=== PATIENT | female | born 1930 | race African-American/Black ===

== ENCOUNTER 2016-11-18 12:12 | Emergency (ER) | payer MEDICARE, MEDICAID ==
[2016-11-18 12:57] LABS: #Basophils 0.1 thou/uL (0.0-0.2); #Eosinphils 0.1 thou/uL (0.0-0.7); #Lymphocytes 1.8 thou/uL (1.20-3.40); #Monocytes 0.4 thou/uL (0.11-0.59); #Neutrophils 5.1 thou/uL (1.40-6.50); %Eosinophils 1.9 % (0.0-10.0); %Lymphocytes 24.1 % (21.0-51.0); %Monocytes 5.2 % (0.0-10.0); %Neutrophils 67.7 % (42.0-75.0); Hemoglobin 10.9 g/dL (12.0-16.0); Mean Corpuscular HGB CONC 31.1 g/dL (32.0-36.0); Mean Corpuscular Hemoglobin 28.8 pg (27.0-31.0); Mean Corpuscular Volume 92.5 fl (81.0-99.0); Mean Platelet Volume 8.2 fL (7.4-10.4); Platelet Count 176 thou/uL (130-400); RBC Distribution Width 15.7 % (11.5-14.5); Red Blood Cell (RBC) Count 3.79 mill/uL (4.20-5.40); White Blood Cell (WBC) Count 7.6 thou/uL (4.8-10.8)
[2016-11-18 13:19] LABS: INR-International Normal Ratio 1.1; Prothrombin Time 14.3 SEC (12.0-14.7)
[2016-11-18 13:20] LABS: PTT 38.6 SEC (22.9-36.1)
== END 2016-11-18 13:45 | disposition home or self-care (01) ==
LOC: NAV ERS 12:12
DX: K64.8 Other hemorrhoids (principal); K59.00 Constipation, unspecified; I10 Essential (primary) hypertension; Z79.899 Other long term (current) drug therapy
CPT/HCPCS: 82274; 85025; 85610; 85730; 99283

== ENCOUNTER 2019-03-09 09:14 | Outpatient (CLI) | payer MEDICARE, MEDICAID ==
--- NOTE | 2019-03-09 11:09 | CT ---
CT ABDOMEN AND PELVIS WITHOUT IV CONTRAST: INDICATIONS: Right abdominal pain. COMPARISON: No comparison studies. TECHNIQUE: Oral contrast was administered. FINDINGS: Motion artifact degrades the exam. The lung bases appear clear. The liver, spleen and pancreas appear unremarkable for an unenhanced study. The dome of the liver is not imaged on this study. The adrenal glands appear normal. There is an exophytic lesion extending from the superior right kidney with densities higher than expe cted for a cyst, making this an indeterminate lesion. It is not adequately evaluated on this unenhanc ed study. It measures up to 2 cm. No hydronephrosis. The kidneys are otherwise unremarkable. Small bowel loops of normal caliber. Appendix is identified and appears unremarkable. Stool throughou t the colon. Diverticulosis of the left colon. No definite evidence of diverticulitis by CT. Aorta of normal caliber. No adenopathy apparent. Images through the pelvis show amorphous calcification involving the uterine fundus, to the left of m idline, consistent with a calcified fibroid. The urinary bladder is mildly distended and unremarkable . Severe degenerative changes in the spine. IMPRESSION: 1. An indeterminate exophytic lesion involving the superior right kidney. Since intravenous contrast cannot be administered in this patient, recommend further evaluation with renal ultrasound examinatio n. MRI may also be considered to further characterize this lesion, which could be performed without c ontrast. 2. Otherwise no acute intra-abdominal process identified. POS: [facility]
== END 2019-03-09 09:15 | disposition home or self-care (01) ==
LOC: NAV CT 09:14
PROVIDERS: ATTEND Nurse Practitioner Adult Health
DX: R10.31 Right lower quadrant pain (principal); Z85.3 Personal history of malignant neoplasm of breast
CPT/HCPCS: 74176

== ENCOUNTER 2019-03-21 10:11 | Outpatient (CLI) | payer MEDICARE, MEDICAID ==
--- NOTE | 2019-03-21 11:39 | ULT ---
BILATERAL RENAL SONOGRAM: Date: 03/21/2019 HISTORY: Renal mass. COMPARISON: Prior exams from [facility] and [facility]. FINDINGS: Right kidney measures up to 9.4 cm length. No hydronephrosis. Along the anterolateral margin of the m id portion of the kidney is an exophytic, well-circumscribed hypoechoic mass without posterior enhanc ement or shadowing. Favored to be a solid lesion rather than cystic. It correlates with the lesion on the recent CT from [facility]. This lesion was not present on the CT images associated with a PET scan from 07/01/2014. The CT chest from [facility] dated 06/29/2014 did not include this part of the ri ght kidney. Left kidney measures up to 8.9 cm. Urinary bladder shows no focal abnormalities. The patient was unab le to void to empty the bladder. IMPRESSION: New solid mass right kidney. 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 Please consider urologic consultation. Findings called to Nayana Aguila at the [facility] at 1125 hours. CODE CR. POS: [facility]
== END 2019-03-21 10:12 | disposition home or self-care (01) ==
LOC: NAV ULT 10:11
PROVIDERS: ATTEND Nurse Practitioner Adult Health
DX: N28.9 Disorder of kidney and ureter, unspecified (principal); N28.89 Other specified disorders of kidney and ureter
CPT/HCPCS: 76770

== ENCOUNTER 2019-10-14 10:09 | Emergency (ER) | payer MEDICARE, MEDICAID ==
[2019-10-14 10:51] LABS: Hemoglobin 11.2 g/dL (12.0-16.0); Mean Corpuscular Hemoglobin 27.9 pg (27.0-31.0); Mean Platelet Volume 7.3 fL (7.4-10.4); Platelet Count 197 thou/uL (130-400); RBC Distribution Width 17.6 % (11.5-14.5); Red Blood Cell (RBC) Count 3.99 mill/uL (4.20-5.40); White Blood Cell (WBC) Count 9.6 thou/uL (4.8-10.8)
[2019-10-14 11:00] LABS: #Eosinphils 0.1 thou/uL (0.0-0.7); #Lymphocytes 2.2 thou/uL (1.20-3.40); #Monocytes 0.6 thou/uL (0.11-0.59); #Neutrophils 6.7 thou/uL (1.40-6.50); %Basophils 0.4 % (0.0-1.0); %Lymphocytes 22.7 % (21.0-51.0); %Monocytes 6.6 % (0.0-10.0); %Neutrophils 69.3 % (42.0-75.0); Anisocytosis SLIGHT = 6-15 cells (100X) (0-5/hpf); Hypochromia SLIGHT = 6-15 cells (100X) (0-5/hpf); MDiff Complete? YES; Platelet Morphology Comment Appears Adequate; Target Cells SLIGHT = 2-5 cells (100X) (0-1/hpf)
[2019-10-14 11:10] LABS: ALT (SGPT) 12 U/L (8-55); AST (SGOT) 16 U/L (5-34); Albumin 4.6 g/dL (3.4-4.8); Alkaline Phosphatase 139 U/L (40-110); Anion Gap 16 mmol/L (10-20); BUN (Urea Nitrogen) 21 mg/dL (9.8-20.1); Bilirubin, Total 0.3 mg/dL (0.2-1.2); Calc. Creatinine Clearance 0 mL/min (70-130); Carbon Dioxide 25 mmol/L (23-31); Chloride 104 mmol/L (98-107); Estimated GFR-MDRD 33; Globulin 3.9 g/dL (2.4-3.5); Glucose 125 mg/dL (83-110); Potassium 3.9 mmol/L (3.5-5.1); Protein, Total 8.5 g/dL (6.0-8.3); Sodium 141 mmol/L (136-145)
[2019-10-14 11:28] LABS: Bilirubin Negative (Negative); Blood, Urine Trace (Negative); Clarity Clear (Clear); Glucose, Urine (Dipstick) Negative (Negative); Ketone, Urine Negative (Negative); Leukocyte Negative (Negative); Nitrite Negative (Negative); Protein, Urine (Dipstick) 30 mg/dL (Neg-Trace); Specific Gravity, Urine 1.015 (1.005-1.030); Urobilinogen 0.2 mg/dL (Less than 2); pH, Urine 5.5 (5.0-9.0)
[2019-10-14 11:37] LABS: Squamous Epithelial 0-3 HPF (0-3); WBC/HPF 0-3 HPF (0-3)
[2019-10-14 11:38] LABS: Bacteria/HPF Rare-Few HPF (None Seen); Mucous/LPF 1+ LPF (<2+)
[2019-10-14] MEDS ORDERED: Ketorolac Tromethamine 30 MG/ML VIAL ONE (11:49)
[2019-10-14] MEDS ORDERED: Ondansetron PF 4 MG/2 ML Vial ONE (11:49)
--- NOTE | 2019-10-14 13:23 | CT ---
CT OF ABDOMEN AND PELVIS PERFORMED WITHOUT CONTRAST ENHANCEMENT: COMPARISON: A 08/16/2019 study. HISTORY: Patient with a history of a right renal mass now presenting with right flank pain. The lung bases sh ow some chronic-appearing change. The liver, spleen, pancreas, and gallbladder regions appear unrema rkable. The somewhat exophytic right renal lesion which is indeterminate on this noncontrast study is stable measuring 2 cm. Calcification in the left renal pelvis is felt to be vascular in nature. There is n o significant periaortic or mesenteric adenopathy. Some colonic diverticulosis was noted and a mild amount of stool. CT OF PELVIS PERFORMED WITHOUT CONTRAST ENHANCEMENT: Calcified uterine fibroids noted. No adenopathy, mass, or free fluid. IMPRESSION: 1. Chronic lung change. 2. Stable exophytic 2 cm lesion involving the right kidney. Obstruction of either kidney. 3. Colonic diverticulosis. 4. Calcified uterine fibroids. POS: [facility]
== END 2019-10-14 13:15 | disposition home or self-care (01) ==
LOC: NAV ERS 10:09
DX: N28.89 Other specified disorders of kidney and ureter (principal); I10 Essential (primary) hypertension; Z79.899 Other long term (current) drug therapy
CPT/HCPCS: 74176; 80053; 81003; 81015; 85025; 96374; 96375; J1885; J2405

== ENCOUNTER 2020-01-04 11:39 | Outpatient (CLI) | payer MEDICARE, MEDICAID ==
--- NOTE | 2020-01-04 12:07 | RAD ---
XR Knee Lt 2 View: 01/04/2020 11:47 AM CLINICAL INDICATION: History of left knee arthritis COMPARISON: None. FINDINGS: Bones: There is diffuse osteopenia. Joints: There is advanced lateral femorotibial joint compartmental narrowing with valgus malalignment . There are prominent marginal osteophytes affecting all major compartments of the left knee.. Soft Tissue: There are severe vascular calcifications seen involving the visualized vasculature.. 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
--- NOTE | 2020-01-04 12:08 | RAD ---
2 views of the right knee: 01/04/2020 COMPARISON: None available HISTORY: Arthritis FINDINGS: There is mild anterior subluxation of the tibia with respect to the distal femur, likely on the basis of degenerative change or laxity. There is vascular calcification posterior to the distal right femur and posterior to the right knee joint. There is severe medial and lateral compartm ent narrowing. There is severe patellofemoral joint space narrowing with posterior patellar osteophyte formation. There is significant osteophyte formation involving the medial and lateral femo ral condyle and the medial and lateral tibial plateau. No acute fracture or dislocation is evident. IMPRESSION: Severe degenerative changes. No acute fracture or dislocation.
== END 2020-01-04 11:40 | disposition home or self-care (01) ==
LOC: NAV RAD 11:39
PROVIDERS: ATTEND Family Medicine
DX: M17.0 Bilateral primary osteoarthritis of knee (principal); M21.062 Valgus deformity, not elsewhere classified, left knee